=== PATIENT | male | born 1970 | race Caucasian/White ===

== ENCOUNTER 2022-12-23 16:38 | Emergency (ER) | payer OTHER, SELFPAY ==
--- NOTE | 2022-12-23 19:31 | PC.NURSE ---
12/23/22 SEE DOWNTIME DOCUMENTATION. CYNTHIA TIM RN
== END 2022-12-23 17:50 | disposition home or self-care (01) ==
PROVIDERS: Emergency Provider Nurse Practitioner Family
DX: L72.9 Follicular cyst of the skin and subcutaneous tissue, unspecified (principal)
CPT/HCPCS: 99203; G0463

== ENCOUNTER 2025-01-24 19:33 | Emergency (ER) | payer OTHER, SELFPAY ==
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
--- OUTSIDE RECORDS SUMMARY | 2025-01-24 19:35 | XMS_ITS | Clinical Summary ---
Author Organization [facility] Address [address] [place] [address] Phone Care Team Providers Care Network Technical Analyst Name Role Phone Provider, None Primary Care Provider Unavailabl e Allergies Active Allergy Reactions Criticality Noted Date Comments Penicillins Swelling 07/06/2018 Medications aspirin 81 MG Chewable Tablet Take 1 Tablet by mouth daily. 11/24/2024 Active clopidogrel (PLAVIX) 75 MG Tablet Take 1 Tablet by mouth daily. 90 Tablet 11/24/2024 Active isosorbide mononitrate (IMDUR) 30 MG TABLET SR 24 HR Take 1 Tablet by mouth daily for 90 days. 90 Tablet 11/24/2024 02/23/20 25 Active lisinopril (PRINIVIL, ZESTRIL) 2.5 MG Tablet Take 1 Tablet by mouth daily for 90 days. 90 Tablet 11/24/2024 02/23/20 25 Active metoprolol Succinate (TOPROL-XL) 25 MG TABLET SR 24 HR Take 1 Tablet by mouth daily. 90 Tablet 11/24/2024 Active rosuvastatin (CRESTOR) 20 MG Tablet Take 2 Tablets by mouth every evening. 90 Tablet 11/24/2024 Active Active Problems Problem Noted Date Diagnosed Date Dyslipidemia 11/24/2024 Coronary artery disease 10/20/2024 History of coronary artery stent placement 10/20 Hypertension 10/20/2024 Tobacco dependency 10/17/2024 Leukocytosis 10/17/2024 Diverticulosis of large inte melissa without perforation or abscess without bleeding 09/25/2016 Resolved Problems Problem Noted Date Diagnosed Date Resolved Date NSTEMI (non-ST elevated myoc ardial infarction) 10/16/2024 10/21/2024 Encounters Date Type Department Care Team Description 01/16/[facility] [address] [place] [address] Shane Kumari MD Medication Refill 11/[facility] [place] [address] Jose Angel Rodarte MD Medication Refill 11/24/2024 2:45 PM CDT Office Visit [facility] [address] [place] [address] oJse Angel Rodarte MD Primary hypertension (Primary Dx); History of coronary artery stent placement; Coronary artery disease involving quileute coronary artery of quileute heart without angina pectoris; Tobacco dependency; Dyslipidemia Discharge Disposition: Discharged to home or Selfcare 11/24/2024 Travel from Last 3 Months Immunizations Immunization Administration Dates Next Due Covid-19, Mrna, Lnp-s, Pf, 1 00 Mcg Or 50 Mcg Dose (MODERNA) 01/22/2021,11/13/2020 TDAP Vaccine 09/23/2016 Family History Medical History Relation Name Comments Acute pancreatitis Father Relation Name Status Comments Father Mother Alive Social History Tobacco Use Types Packs/Day Years Used Date Smoking Tobacco: Former Cigarettes Smokeless Tobacco: Never Tobacco Cessation:Counseling Given: Not Answered Alcohol Use Standard Drinks/Week Comments Not Currently 0 (1 standard drink = 0.6 oz pur e alcohol) rarely C Utilities Answer Date Recorded In the past 12 months has [employer], gas, oil, or water [employer] threatened to shut off services in your home? No 10/23/2024 Social Connection and Isolation Panel Answer Date Recorded In a typical week, how many times do you talk on the phone with family, friends, or neighbors? Once a week 10/24/19 How often do you get togethe r with friends or relatives? Once a week 10/23/2024 How often do you attend [facility] or anabaptism services? 1 to 4 times per year 10/23/2024 Do you belong to any clubs o r organizations such as judaism groups, unions, fraternal or athletic groups, or school groups? Patient declined 10/23/2024 How often do you attend meet ings of the clubs or organizations you belong to? Patient declined 10/23/2024 Are you , , di vorced, , never , or living with a partner? 10/23/2024 AUDIT-C Answer Date Recorded Q1: How often do you have a drink containing alcohol? Never 10/23/2024 Q2: How many drinks containi ng alcohol do you have on a typical day when you are drinking? Patient does not drink Q3: How often do you have si x or more drinks on one occasion? Never 10/23/2024 Overall Financial Resource Strain (CARDIA) Answe r Date Recorded How hard is it for you to pa y for the very basics like food, housing, medical care, and heating? Very hard 10/23/2024 [facility] - Occupational Stress Questionnaire Answer Date Recorded Do you feel stress - tense, restless, nervous, or anxious, or unable to sleep at night because your mind is troubled all the time - these days? Patient declined 10/23/2024 Exercise Vital Sign Answer Date Recorde d On average, how many days pe r week do you engage in moderate to strenuous exercise (like a brisk walk)? 5 days 10/23/2024 On average, how many minutes do you engage in exercise at this level? 150+ min 10/23/2024 Hunger Vital Sign Answer Date Recorded Within the past 12 months, y ou worried that your food would run out before you got the money to buy more. Often true 10/24/19 25 Within the past 12 months, t he food you bought just didn't last and you didn't have money to get more. Often true 10/23/2024 PRAPARE - Transportation Answer Date Re corded In the past 12 months, has l ack of transportation kept you from medical appointments or from getting medications? No 10/10 In the past 12 months, has l ack of transportation kept you from meetings, work, or from getting things needed for daily living? Yes 10/23/2024 Housing Stability Vital Sign Answer Nitesh e Recorded In the last 12 months, was t here a time when you were not able to pay the mortgage or rent on time? Yes 10/24/19 25 In the past 12 months, how m any times have you moved where you were living? 0 10/23/2024 At any time in the past 12 m [facility], were you homeless or living in a [place] [facility] facility (including now)? Patient declined 10/23/2024 Sex and Gender Information Value Date Recorded Sex Assigned at Not on file Legal Sex Male 11:42 PM CDT Gender Identity Not on file Sexual Orientation Not on file Last Filed Vital Signs Vital Sign Reading Time Taken Comments Blood Pressure 120/74 11/24/2024 2:48 PM CDT Pulse 68 11/24/2024 2:48 PM CDT Temperature 36.5 C (97.7 F) 11/24/2024 2:48 PM CDT Respiratory Rate 16 11/24/2024 2:48 PM CDT Oxygen Saturation 97% 11/24/2024 2:48 PM CDT Inhaled Oxygen Concentration - - Weight 92.1 kg (203 lb) 11/24/2024 2:48 PM CDT Height 182.9 cm (6') 11/24/2024 2:48 PM CDT Body Mass Index 27.53 11/24/2024 2:48 PM CDT Plan of Treatment Upcoming Encounters Date Type Department Care Team (Late st Contact Info) Description 05/25/2025 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 [place] [facility]. [address] [place] [id number] Health Maintenance Due Date Last Done Comments Hepatitis C Virus (HCV) Screening 1970 Hepatitis B Immunization (1 of 3 - 19+ 3-dose series) 1989 Cologuard 10/13/2015 Colonoscopy 10/13/2015 Colorectal Cancer Screening 10/13/2015 Immunochemical Fecal Occult Blood 10/13/2015 Pneumococcal Immunization (5 0+ years) (1 of 1 - PCV) 2020 Zoster Immunization (1 of 2) 2020 SARS-COV-2 Immunization (3 - season) 2024 01/22/2021, 11/13/2020 Influenza Immunization (#1) 2025 Td Immunization Every 10 Yea rs (Adults With 1 Tdap) 09/23/2026 09/23/2016 Respiratory Syncytial Virus (RSV) Immunization (Adult) (1 - 1-dose 75+ series) 2045 TdaP Immunization Discontinued 09/23/2016 Human Papillomavirus (HPV) Immunization Aged Out No longer eligible based on patient's age to complete this topic Meningococcal Immunization (ACWY) Aged Out No longer eligible based on patient's age to complete this topic Rotavirus Immunization Aged Out No lo nger eligible based on patient's age to complete this topic Medical Devices Implanted Type Area Microsoft Application Developer Device Identifier Shelf Expiration Date Model / Serial / Lot System Coronary Stent Xience Skypoint Everolimus Eluting 2.75 Mm X 12 Mm / Rapid-Exchange - [id number] Implanted:Qty: 1 on 10/17/2024 by Cathie Lopez MD at [facility] IMPLANT Coronary [employer] [id number] 12/29/2025 [id number] System Coronary Stent Xience Sk[employer] Everolimus Eluting 3.00 Mm X 18 Mm / Rapid-Exchange - [id number] Implanted:Qty: 1 on 10/17/2024 by Cathie Lopez MD at [facility] IMPLANT [employer] [id number] 07/20/2027 [id number] Additional Health Concerns Infection Onset Date Last Indicated MRSA 10/20/2024 10/20/2024 Insurance [place] [id number] Advance Directives * Full Code (Latest Code Status on File) Date Activated Date Inactivated Comments 10/20/2024 7:18 PM CPR-Full Treat ment: FULL ARREST: Attempt Resuscitation/CPR wit intubation and mechanical ventilation. PRE-ARREST: Use entire range of life support measures to stabilize the patient. * Full Code Date Activated Date Inactivated Comments 10/17/2024 12:45 AM 10/20/2024 7:18 PM CPR-Full Ignacio atment: FULL ARREST: Attempt Resuscitation/CPR wit intubation and mechanical ventilation. PRE-ARREST: Use entire range of life support measures to stabilize the patient. Care Teams Network Technical Analyst Relationship Specialty Start Date End Date Provider, None [place] PCP - General 07/06/18
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
--- OUTSIDE RECORDS SUMMARY | 2025-01-24 19:35 | XMS_ITS | Encounter Summary ---
Author Organization [facility] Address [address] [place] [address] Phone Care Team Providers Care Patient Registration Representative Name Role Phone Provider, None Primary Care Provider Unavailabl e Reason for Visit * Reason Comments Medication Refill Encounter Details Date Type Department Care Team (Late st Contact Info) Description 01/16/2025 Refill [facility] - Family Medicine [facility] [address] [place] [address] Shane Kumari MD [address] [address] Medication Refill Social History Tobacco Use Types Packs/Day Years Used Date Smoking Tobacco: Former Cigarettes Smokeless Tobacco: Never Alcohol Use Standard Drinks/Week Comments Not Currently 0 (1 standard drink = 0.6 oz pur e alcohol) rarely [facility] Utilities Answer Date Recorded In the past 12 months has [employer], gas, oil, or water [employer] threatened to shut off services in your home? No 10/23/2024 Social Connection and Isolation Panel Answer Date Recorded In a typical week, how many times do you talk on the phone with family, friends, or neighbors? Once a week 10/24/19 How often do you get togethe r with friends or relatives? Once a week 10/23/2024 How often do you attend [facility] or faith services? 1 to 4 times per year 10/23/2024 Do you belong to any clubs o r organizations such as holiness groups, unions, fraternal or athletic groups, or [...] medical care, and heating? Very hard 10/23/2024 [facility] - Occupational Stress [...] any time in the past 12 m [facility], were you homeless or living in a snf (including now)? Patient declined 10/23/2024 Sex and Gender Information Value Date Recorded Sex Assigned at Not on file Legal Sex Male 11:42 PM CDT Gender Identity Not on file Sexual Orientation Not on file documented as of this encounter Miscellaneous Notes * Telephone Encounter - Kayla Wilkins RN - 01/17/2025 1:53 PM CDT Hospital follow up in October - No Showed appt in November Pt has NOT estatblished care with a provider in this office Dr Kumari saw patient in October out but he is out of office until 01/28/25. Pt needs to establish care if he wants to get his meds from this office. documented in this encounter Plan of Treatment Upcoming Encounters Date Type Department Care Team (Late st Contact Info) Description 05/25/2025 2:30 PM SURGICAL SCRUB TECHNOLOGIST Office Visit [facility] [place] [address] [place] [address] Jose Angel Rodarte MD [address] [facility] [address] [place] [address] documented as of this encounter Visit Diagnoses Not on filedocumented in this encounter Additional Health Concerns Infection Onset Date Last Indicated Resolved Time MRSA 10/20/2024 10/20/2024 documented as of this encounter Care Teams Patient Registration Representative Relationship Specialty Start Date End Date Provider, None [place] PCP - General 07/06/18 documented as of this encounter
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
[2025-01-24 19:48] VITALS: BP 125/82; PULSE 82; RESP 16; TEMP 36.8; O2SAT 99
== END 2025-01-24 20:38 | disposition home or self-care (01) ==
PROVIDERS: Emergency Provider Nurse Practitioner Family
DX: S16.1XXA Strain of muscle, fascia and tendon at neck level, initial encounter (principal); S39.012A Strain of muscle, fascia and tendon of lower back, initial encounter; V43.52XA Car driver injured in collision with other type car in traffic accident, initial encounter
CPT/HCPCS: 72050; 72072; 72100; 99214; G0463